=== PATIENT | male | born 1990 | race Caucasian/White ===

== ENCOUNTER → 2016-12-24 | Outpatient (CLI) | payer OTHER, SELFPAY ==
[2016-12-24 14:27] LABS: ALBUMIN 3.9 GM/DL (3.2-5.2); ALBUMIN/GLOBULIN RATIO 1.15 (1.00-1.93); ALKALINE PHOSPHATASE 43 U/L (45-117); ALT/SGPT 17 U/L (12-78); ANION GAP 7 MEQ/L (8-16); AST/SGOT 15 U/L (15-37); BILIRUBIN,TOTAL 0.3 MG/DL (0.2-1.0); BLOOD UREA NITROGEN 7 MG/DL (7-18); CALCIUM LEVEL 8.9 MG/DL (8.5-10.1); CARBON DIOXIDE LEVEL 29 MEQ/L (21-32); CHLORIDE LEVEL 107 MEQ/L (98-107); CREATININE FOR GFR 0.91 MG/DL (0.70-1.30); GLOMERULAR FILTRATION RATE > 60.0 (>60); GLUCOSE, FASTING 95 MG/DL (70-105); POTASSIUM SERUM 4.1 MEQ/L (3.5-5.1); SODIUM LEVEL 143 MEQ/L (136-145); TOTAL PROTEIN 7.3 GM/DL (6.4-8.2)
[2016-12-24 14:37] LABS: BASO % 0.5 % (0.0-1.0); EOS # 0.1 K/mm3 (0.0-0.50); EOS % 0.9 % (0.0-3.0); LARGE UNSTAINED CELL # 0.1 K/mm3 (0.0-0.4); LARGE UNSTAINED CELL % 1.8 % (0.0-4.0); LYMPH # 1.7 K/mm3 (1.5-6.5); MEAN CORPUSCULAR HEMOGLOBIN 30.3 pg (27.0-33.0); MEAN CORPUSCULAR HGB CONC 35.5 g/dl (32.0-36.5); MEAN CORPUSCULAR VOLUME 85.3 fl (80.0-96.0); MONO # 0.4 K/mm3 (0.0-0.8); MONO % 5.3 % (0.0-5.0); NEUTROPHILS # 4.6 K/mm3 (1.8-7.7); NEUTROPHILS % 68.5 % (36.0-66.0); PLATELET COUNT, AUTOMATED 223 k/mm3 (150-450); RED CELL DISTRIBUTION WIDTH 12.7 % (11.5-14.5); WHITE BLOOD COUNT 6.7 K/mm3 (4.0-10.0)
[2016-12-25 14:13] LABS: HIV SCRN NEGATIVE (NEGATIVE); HIV SCRN1 NEGATIVE (NEGATIVE)
[2016-12-25 14:14] LABS: CONTROL LINE INT CTR LINE PRESENT
== END ==
LOC: M LAB 12:54
PROVIDERS: ATTEND Family Medicine
DX: F11.20 Opioid dependence, uncomplicated (principal)

== ENCOUNTER → 2017-10-17 | Outpatient (CLI) | payer OTHER ==
[2017-10-17 08:41] LABS: BASO % 0.4 % (0.0-1.0); EOS # 0.1 10^3/uL (0.0-0.50); EOS % 0.7 % (0.0-3.0); HEMATOCRIT 41.6 % (42.0-52.0); HEMOGLOBIN 14.2 g/dl (14.0-18.0); IMMATURE GRANULOCYTE % 0.3 % (0-0); LYMPH % 28.3 % (24.0-44.0); MEAN CORPUSCULAR HEMOGLOBIN 28.9 pg (27.0-33.0); MEAN CORPUSCULAR HGB CONC 34.1 g/dl (32.0-36.5); MEAN CORPUSCULAR VOLUME 84.6 fl (80.0-96.0); MONO % 13.6 % (0.0-5.0); NEUTROPHILS % 56.7 % (36.0-66.0); PLATELET COUNT, AUTOMATED 255 10^3/uL (150-450); RED BLOOD COUNT 4.92 10^6/uL (4.30-6.10); RED CELL DISTRIBUTION WIDTH 11.9 % (11.5-14.5); WHITE BLOOD COUNT 7.1 10^3/uL (4.0-10.0)
[2017-10-17 08:51] LABS: APPEARANCE, URINE CLEAR (CLEAR); BACTERIA, URINE AUTO NEGATIVE (NEGATIVE); BILIRUBIN, URINE AUTO NEGATIVE (NEGATIVE); BLOOD, URINE BLOOD NEGATIVE (NEGATIVE); COLOR, URINE YELLOW (YELLOW); GLUCOSE, URINE (UA) AUTO NEGATIVE (NEGATIVE); KETONE, URINE AUTO NEGATIVE (NEGATIVE); LEUKOCYTE ESTERASE, URINE AUTO NEGATIVE (NEGATIVE); MUCUS, URINE SMALL (NEGATIVE); NITRITE, URINE AUTO NEGATIVE (NEGATIVE); PROTEIN, URINE AUTO NEGATIVE (NEGATIVE); RBC, URINE AUTO 1 /HPF (0-3); SPECIFIC GRAVITY URINE AUTO 1.025 (1.002-1.035); SQUAMOUS EPITHELIAL CELL UR AU 0 /HPF (0-6); UROBILINOGEN, URINE AUTO 0.2 mg/dL (0.0-2.0); WBC, URINE AUTO 0 /HPF (0-3)
[2017-10-17 09:16] LABS: ALBUMIN 4.1 GM/DL (3.2-5.2); ALBUMIN/GLOBULIN RATIO 1.21 (1.00-1.93); ALKALINE PHOSPHATASE 53 U/L (45-117); ALT/SGPT 22 U/L (12-78); ANION GAP 7 MEQ/L (8-16); AST/SGOT 26 U/L (7-37); BILIRUBIN,TOTAL 0.4 MG/DL (0.2-1.0); BLOOD UREA NITROGEN 21 MG/DL (7-18); CALCIUM LEVEL 8.5 MG/DL (8.5-10.1); CARBON DIOXIDE LEVEL 29 MEQ/L (21-32); CHLORIDE LEVEL 104 MEQ/L (98-107); CREATININE FOR GFR 1.03 MG/DL (0.70-1.30); GLOMERULAR FILTRATION RATE > 60.0 (>60); GLUCOSE, FASTING 102 MG/DL (70-105); SODIUM LEVEL 140 MEQ/L (136-145); TOTAL PROTEIN 7.5 GM/DL (6.4-8.2)
[2017-10-18 10:10] LABS: HEPATITIS B SURFACE ANTIGEN NEGATIVE (NEGATIVE)
[2017-10-18 10:37] LABS: HEPATITIS B CORE ANTIBODY IGM NEGATIVE (NEGATIVE)
[2017-10-18 10:39] LABS: HEPATITIS A ANTIBODY IGM NEGATIVE (NEGATIVE)
[2017-10-18 10:55] LABS: HEPATITIS C VIRUS ABY INDEX > 11.0 INDEX (<0.8)
[2017-10-21 00:06] LABS: HCV RNA NAA QUALITATIVE Negative (Negative)
== END ==
LOC: M LAB 08:16
DX: F11.21 Opioid dependence, in remission (principal)
CPT/HCPCS: 80053

== ENCOUNTER → 2017-11-20 | Outpatient (CLI) | payer OTHER ==
[2017-11-20 13:32] LABS: HEMATOCRIT 39.6 % (42.0-52.0); HEMOGLOBIN 13.4 g/dl (14.0-18.0); MEAN CORPUSCULAR HEMOGLOBIN 28.3 pg (27.0-33.0); MEAN CORPUSCULAR HGB CONC 33.8 g/dl (32.0-36.5); MEAN CORPUSCULAR VOLUME 83.7 fl (80.0-96.0); PLATELET COUNT, AUTOMATED 252 10^3/uL (150-450); RED BLOOD COUNT 4.73 10^6/uL (4.30-6.10); WHITE BLOOD COUNT 5.2 10^3/uL (4.0-10.0)
[2017-11-20 13:52] LABS: ALBUMIN/GLOBULIN RATIO 1.25 (1.00-1.93); ALKALINE PHOSPHATASE 57 U/L (45-117); ALT/SGPT 28 U/L (12-78); ANION GAP 8 MEQ/L (8-16); AST/SGOT 30 U/L (7-37); BILIRUBIN,TOTAL 0.3 MG/DL (0.2-1.0); BLOOD UREA NITROGEN 13 MG/DL (7-18); CALCIUM LEVEL 8.7 MG/DL (8.5-10.1); CARBON DIOXIDE LEVEL 30 MEQ/L (21-32); CHLORIDE LEVEL 103 MEQ/L (98-107); CREATININE FOR GFR 0.85 MG/DL (0.70-1.30); GLOMERULAR FILTRATION RATE > 60.0 (>60); GLUCOSE, FASTING 104 MG/DL (70-100); POTASSIUM SERUM 4.1 MEQ/L (3.5-5.1); SODIUM LEVEL 141 MEQ/L (136-145); TOTAL PROTEIN 7.2 GM/DL (6.4-8.2)
[2017-11-20 14:08] LABS: HEPATITIS B SURFACE ANTIGEN NEGATIVE (NEGATIVE)
[2017-11-20 14:37] LABS: HIV 1&2 SCREEN CENTAUR NEGATIVE (NEGATIVE)
[2017-11-20 14:40] LABS: HEPATITIS C VIRUS ABY INDEX > 11.0 INDEX (<0.8)
[2017-11-20 16:06] LABS: CHLAMYDIA DNA AMPLIFICATION NEGATIVE (NEGATIVE); GC DNA AMPLIFICATION NEGATIVE (NEGATIVE)
== END ==
LOC: M LAB 12:08
DX: F11.20 Opioid dependence, uncomplicated (principal)
CPT/HCPCS: 93005

== ENCOUNTER 2018-03-21 22:59 | Emergency (ER) | payer OTHER | END 2018-03-22 | disposition home or self-care (01) | LOC: M ED 03-22 | DX: F19.120 Other psychoactive substance abuse with intoxication, uncomplicated (principal); F41.8 Other specified anxiety disorders; Z88.0 Allergy status to penicillin; Z79.899 Other long term (current) drug therapy | CPT/HCPCS: 99284 ==

== ENCOUNTER 2018-04-02 09:11 | Emergency (ER) | payer OTHER | END 2018-04-02 10:30 | disposition home or self-care (01) | LOC: M ED 09:11 | DX: Z48.02 Encounter for removal of sutures (principal); F17.200 Nicotine dependence, unspecified, uncomplicated | CPT/HCPCS: 99282 ==

== ENCOUNTER 2018-05-21 02:44 | Emergency (ER) | payer OTHER ==
[2018-05-21] MEDS ORDERED: KETOROLAC 30 MG/ML VIAL (J1885) As Ordered (03:30)
[2018-05-21] MEDS: KETOROLAC 60 MG/2 ML VIAL (J1885) IM (03:30)
== END 2018-05-21 03:39 | disposition home or self-care (01) ==
LOC: M ED 02:44
DX: S02.5XXA Fracture of tooth (traumatic), initial encounter for closed fracture (principal); Y04.8XXA Assault by other bodily force, initial encounter; Y92.89 Other specified places as the place of occurrence of the external cause; Z79.899 Other long term (current) drug therapy; Z79.891 Long term (current) use of opiate analgesic; Z88.0 Allergy status to penicillin; F17.220 Nicotine dependence, chewing tobacco, uncomplicated
CPT/HCPCS: J1885

== ENCOUNTER 2019-05-28 08:16 | Inpatient (IN) | payer MEDICAID, OTHER ==
[~2019-05-28] VITALS: Ht 177.8 cm; Wt 77.0 kg
[~2019-05-28 08:16] MED LIST: BUSP10TA PO; METH40TA PO; REME30TA PO
[2019-05-28] MEDS ORDERED: NICOTINE 21MG/24HR 1 EA TRANSDERMAL TD ONE (08:30)
[2019-05-28 09:17] LABS: HEMATOCRIT 41.6 % (42.0-52.0); MEAN CORPUSCULAR HEMOGLOBIN 29.4 pg (27.0-33.0); MEAN CORPUSCULAR HGB CONC 36.1 g/dl (32.0-36.5); MEAN CORPUSCULAR VOLUME 81.6 fl (80.0-96.0); PLATELET COUNT, AUTOMATED 253 10^3/uL (150-450); WHITE BLOOD COUNT 10.9 10^3/uL (4.0-10.0)
[2019-05-28] MEDS ORDERED: ACET1TAB55 PO (09:20)
[2019-05-28] MEDS ORDERED: RA M10TA PO (09:20)
[2019-05-28 09:54] LABS: BLOOD UREA NITROGEN 15 MG/DL (7-18); CARBON DIOXIDE LEVEL 27 MEQ/L (21-32); CHLORIDE LEVEL 102 MEQ/L (98-107); CREATININE FOR GFR 1.19 MG/DL (0.70-1.30); GLOMERULAR FILTRATION RATE > 60.0 (>60); GLUCOSE, FASTING 102 MG/DL (70-100); POTASSIUM SERUM 3.7 MEQ/L (3.5-5.1); SODIUM LEVEL 138 MEQ/L (136-145)
[2019-05-28 09:55] LABS: ACETAMINOPHEN LEVEL < 2.0 UG/ML (10.0-30.0); ALBUMIN 4.3 GM/DL (3.2-5.2); ALT/SGPT 26 U/L (12-78); BILIRUBIN,DIRECT 0.1 MG/DL (0.0-0.2); BILIRUBIN,TOTAL 0.5 MG/DL (0.2-1.0); CALCIUM LEVEL 9.4 MG/DL (8.5-10.1); ETHYL ALCOHOL (ETHANOL) < 0.003 % (0.000-0.010); SALICYLATE LEVEL 3.2 MG/DL (5.0-30.0); TOTAL PROTEIN 8.4 GM/DL (6.4-8.2)
[2019-05-28 10:05] LABS: AMPHETAMINES LEVEL URINE NEGATIVE (NEGATIVE); BARBITURATES URINE NEGATIVE (NEGATIVE); BENZODIAZEPINES URINE NEGATIVE (NEGATIVE); CANNABINOIDS URINE POSITIVE (NEGATIVE); COCAINE METABOLITE URINE NEGATIVE (NEGATIVE); METHADONE URINE POSITIVE (NEGATIVE); OPIATES URINE NEGATIVE (NEGATIVE); PHENCYCLIDINE URINE NEGATIVE (NEGATIVE)
[2019-05-28] MEDS ORDERED: MAALOX 30 ML SUSP *UDC PO PRN (13:00)
[2019-05-28] MEDS ORDERED: LORazepam 1 MG TAB PO PRN (13:00)
[2019-05-28] MEDS ORDERED: MOM 30ML SUSPENSION UDC PO PRN (13:00)
[2019-05-28] MEDS ORDERED: HALOPERIDOL 5 MG TAB PO PRN (13:00)
[2019-05-28] MEDS ORDERED: ACETAMINOPHEN TAB 650MG DOSE (2X325MG) PO PRN (13:00)
[2019-05-28] MEDS ORDERED: traZODone 50 MG TAB PO PRN (13:00)
[2019-05-28 15:09] VITALS: BP 122/67
[2019-05-28] MEDS: NICOTINE 21MG/24HR 1 EA TRANSDERMAL TD SCH (21:59)
[2019-05-29 06:14] VITALS: BP 126/68
[2019-05-29] MEDS: NICOTINE 21MG/24HR 1 EA TRANSDERMAL TD SCH ×2 (08:44→16:06)
--- NOTE | 2019-05-29 10:34 | HPEPDOC ---
General Date of Admission May 28, 2019 at 12:51 Date of Service: May 29, 2019 Attending Physician: TOMÁS PEÑALOZA MD Chief Complaint The patient is a 29-year-old male admitted with a reason for visit of Unspecified Depression. History of Present Illness Patient is a 29-year-old male, past medical history significant for polysubstance abuse, hepatitis C, nicotine dependence, admitted to inpatient psychiatric unit on account of suicidal ideation. On assessment, patient complains of generalized malaise with body aches, but denies any specific concern. Feels it might be due to not having Suboxone for some days now. Denies chest pain, reports intermittent periods of shortness of breath, denies history of asthma or respiratory problems. Home Medications Scheduled Melatonin (Melatonin) 10 Mg Tablet, 10 MG PO QHS, (Reported) Scheduled PRN Acetaminophen (Acetaminophen) 325 Mg Tablet, 650 MG PO Q6H PRN for PAIN, (Reported) Allergies Coded Allergies: Penicillins (Verified Allergy, Unknown, 05/28/19) Past Medical History Medical History Hepatitis C Nicotine dependence Polysubstance abuse Surgical History Denies surgical history Family History Father is unknown. Mother: No medical issues Social History Smokes one pack per day, denies alcohol, urine toxicology positive for methamphetamines and marijuana A-FIB/CHADSVASC A-FIB History Current/History of A-Fib/PAF?: No Current PO Anticoag Therapy: No Review of Systems Other systems A pertinent 10 point review of systems was completed, negative except as stated in the history of presenting illness Physical Examination Other physical findings GENERAL: NAD SKIN : Warm, dry intact HEENT: Atraumatic, normocephalic, PERRL, moist mucous membrane CARDIOVASCULAR: Regular rate and rhythm, S1S2, no JVD, no edema, distal pulses + palpable RESP: inspiratory wheezes, no accessory muscle use noted ABDOMEN: BS+ non distended non tender MS: no joint deformities NEURO: Alert and oriented x 3, CN2-12 grossly intact PSYCH: no anxiety or agitation, depressed affect. Vital Signs Vital Signs Date Time Temp Pulse Resp B/P (MAP) Pulse Ox O2 Delivery O2 Flow Rate FiO2 05/29/19 06:14 98.7 75 18 126/68 (87) 05/28/19 13:44 100 05/28/19 08:40 Room Air Assessment/Plan Dyspnea -Occurring intermittently -In a patient with underlying nicotine dependence -Albuterol as needed for periods of shortness of breath Hepatitis C -Followed by infectious disease specialist -No acute complaints at this time Polysubstance abuse -Urine toxicology positive for methamphetamines and marijuana Plan / VTE VTE Prophylaxis Ordered?: No VTE Exclusion Mechanical Proph: Low Risk for VTE FAISAL DÍAZP May 29, 2019 10:34
[2019-05-29] MEDS ORDERED: hydrOXYzine 50 MG TAB PO PRN (10:45)
[2019-05-29] MEDS ORDERED: ALBUTEROL 90 MCG/ACT 8GM HFA INHALER INH PRN (10:45)
[2019-05-29] MEDS: buPROPion (WELLBUTRIN SR) 100 MG SR TAB PO SCH (11:17)
[2019-05-29 18:16] VITALS: BP 124/61
[2019-05-29] MEDS ORDERED: QUEtiapine FUMARATE 50 MG TAB PO SCH (21:00)
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
[2019-05-30 06:50] VITALS: BP 103/56
[2019-05-30] MEDS: NICOTINE 21MG/24HR 1 EA TRANSDERMAL TD SCH (09:27)
[2019-05-30] MEDS: buPROPion (WELLBUTRIN SR) 100 MG SR TAB PO SCH (09:27)
[2019-05-30 18:05] VITALS: BP 121/77
[2019-05-30] MEDS: QUEtiapine FUMARATE 50 MG TAB PO SCH (21:52)
[2019-05-31 06:46] VITALS: BP 104/55
[2019-05-31] MEDS: buPROPion **SR TABLET** (ZYBAN) 150MG PO SCH (09:17)
[2019-05-31] MEDS: NICOTINE 21MG/24HR 1 EA TRANSDERMAL TD SCH (09:18)
--- NOTE | 2019-05-31 10:55 | MHIPN ---
DATE: 05/30/2019 VITAL SIGNS: Temperature 98.4, pulse 75, respirations 18, blood pressure 103/56. CURRENT MEDICATIONS: - Seroquel 50 mg at bedtime - Wellbutrin SR 100 mg every a.m. HISTORY OF PRESENT ILLNESS: This is a 29-year-old white male who continues to struggle with depressive symptoms. He feels helpless and hopeless and feels guilty and ashamed for past behaviors. He is still withdrawing from the Suboxone and methadone that he has abused off the street. He is interested in a dual diagnosis program. He is tolerating his medications well. His appetite is somewhat improved. He slept somewhat better last night. No side effects on the Seroquel. He feels comfortable increasing the doses. He thinks he was up to Wellbutrin 300 mg per day in the past. He is still worried about his future. The patient has few social supports, except for his girlfriend who will be visiting later today. MENTAL STATUS EXAMINATION: The patient is alert, oriented and cooperative. Affect remains sad. Mood is still moderately depressed. The patient is still reporting auditory hallucinations, mostly mumbling in nature. No signs of paranoia or thought disorder. Insight and judgment remain poor. Grooming and hygiene are marginal. DIAGNOSES: Depressive disorder unspecified. Rule out major depression with psychosis. Post traumatic stress disorder. Polysubstance use disorder. PLAN: Increase Wellbutrin SR to 150 mg every a.m. Increase Seroquel to 100 mg at bedtime. Continue involvement in hospital milieu. Staff to work on discharge planning with outpatient referrals.
[2019-05-31 18:49] VITALS: BP 129/60
[2019-05-31] MEDS: QUEtiapine FUMARATE 50 MG TAB PO SCH (21:51)
[2019-06-01 06:48] VITALS: BP 99/50
[2019-06-01] MEDS: buPROPion **SR TABLET** (ZYBAN) 150MG PO SCH (08:06)
[2019-06-01] MEDS: NICOTINE 21MG/24HR 1 EA TRANSDERMAL TD SCH (08:07)
[2019-06-01 11:19] VITALS: BP 99/50
[2019-06-01 16:00] VITALS: BP 138/79
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
[2019-06-01] MEDS: QUEtiapine FUMARATE 200 MG TAB PO SCH (21:50)
--- NOTE | 2019-06-01 21:54 | MHIPN ---
DATE: 06/01/2019 Temperature 98.7, pulse 66, respirations 12, blood pressure 99/50. CURRENT MEDICATIONS: - Seroquel 150 mg nightly - Wellbutrin SR 150 mg every morning HISTORY OF PRESENT ILLNESS: The patient states that he is still depressed, moderately to severely, mornings are always worse for him, he brightens somewhat later in the day. He had trouble sleeping last night, he had a 2 hour sleep latency, he was up frequently at night. He now reports likely social phobic symptoms. His girlfriend visited yesterday and his hands and palms were sweaty. He has a history of trouble with public speaking. He avoids crowded situations. This dates back to age 15. No recent posttraumatic stress disorder (PTSD) symptoms. His girlfriend was supportive during her visit yesterday. Patient may have some legal charges pending but he refuses to investigate it. The patient is still reporting some psychotic symptoms. He is tolerating the medication well. Patient states that as a teenager he was on Prozac but felt suicidal on it. He was on Paxil briefly and tolerated it well. MENTAL STATUS EXAMINATION: Patient is alert, oriented, cooperative. Affect still remains sad. He is highly anxious. Patient's mood is moderately to severely depressed. No change in auditory hallucinations. No signs of paranoia or thought disorder. Insight and judgment remain poor. No active suicidal ideation. Grooming and hygiene remain marginal. DIAGNOSES: 1. Major depression with psychotic features. 2. Posttraumatic stress disorder (PTSD). 3. Panic anxiety disorder. 4. Social anxiety disorder. 5. Polysubstance use disorder. PLAN: Increase Wellbutrin SR to 200 mg every morning. Increase Seroquel to 200 mg nightly.
[2019-06-02 06:51] VITALS: BP 104/60
[2019-06-02] MEDS: buPROPion (WELLBUTRIN SR) 100 MG SR TAB PO SCH (08:41)
[2019-06-02] MEDS: NICOTINE 21MG/24HR 1 EA TRANSDERMAL TD SCH (08:42)
[2019-06-02] MEDS: PARoxetine 10MG TABLET PO SCH (11:54)
[2019-06-02 16:43] VITALS: BP 128/58
--- NOTE | 2019-06-02 20:21 | MHIPN ---
DATE: 06/02/2019 VITAL SIGNS: Temperature 98.6, pulse 74, respirations 16, blood pressure 104/60. CURRENT MEDICATIONS: - Wellbutrin SR 200 mg every morning - Seroquel 200 mg at bedtime HISTORY OF PRESENT ILLNESS: Patient states his mood is somewhat improved. He feels more hopeful about the future. His girlfriend has secure housing established, so he has a place to go to. They are planning on getting . He realizes that he will have to go back to [facility] at some point, but he is accepting. He still complains of severe anxiety. This appears to be due to social phobic symptoms. We discussed a trial of Paxil. He claims he did well on Paxil in the past as an adolescent. MENTAL STATUS EXAMINATION: Patient is alert, oriented, and cooperative. Affect is brighter. The patient is still quite anxious. Mood is only mildly depressed today. Auditory hallucinations are minimal. No signs of paranoia or thought disorder. Insight and judgment seem much improved. No signs of dangerousness. Grooming and hygiene somewhat improved. DIAGNOSES: 1. Major depression with psychotic features. 2. Posttraumatic stress disorder. 3. Panic/anxiety disorder. 4. Social anxiety disorder. 5. Polysubstance use disorder. PLAN: Add Paxil 10 mg daily. Staff to work on discharge planning.
[2019-06-02] MEDS: QUEtiapine FUMARATE 200 MG TAB PO SCH (22:00)
[2019-06-03 06:53] VITALS: BP 135/62
[2019-06-03] MEDS: buPROPion (WELLBUTRIN SR) 100 MG SR TAB PO SCH (08:09)
[2019-06-03] MEDS: PARoxetine 10MG TABLET PO SCH (08:09)
[2019-06-03] MEDS: NICOTINE 21MG/24HR 1 EA TRANSDERMAL TD SCH (08:10)
[2019-06-03] MEDS ORDERED: BUPR10TASR PO (09:47)
[2019-06-03] MEDS ORDERED: QUET200T2 PO (09:47)
[2019-06-03] MEDS ORDERED: PARO20TA4 PO (09:47)
[2019-06-03] MEDS ORDERED: WELL200T PO (09:50)
[2019-06-04] MEDS ORDERED: PARoxetine 20 MG TAB PO SCH (09:00)
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
== END 2019-06-03 12:15 | disposition home or self-care (01) | DRG 751 ==
LOC: M ED 08:16 → M ED INP 12:51 → M PSY 15:01
PROVIDERS: ADMIT Psychiatry & Neurology Psychiatry; ATTEND Psychiatry & Neurology Psychiatry
DX: F32.3 Major depressive disorder, single episode, severe with psychotic features (principal); B18.2 Chronic viral hepatitis C; F43.10 Post-traumatic stress disorder, unspecified; F41.0 Panic disorder [episodic paroxysmal anxiety]; F17.200 Nicotine dependence, unspecified, uncomplicated; Z88.0 Allergy status to penicillin; F12.90 Cannabis use, unspecified, uncomplicated; F15.90 Other stimulant use, unspecified, uncomplicated; Z65.3 Problems related to other legal circumstances

== ENCOUNTER → 2020-08-02 | Outpatient (REF) | payer OTHER ==
[~2020-08-02] MED LIST changes: +ACET1TAB55 PO; +BUPR10TASR PO; +PARO20TA4 PO; +QUET200T2 PO; +RA M10TA PO; +WELL200T PO
== END ==
LOC: M LAB REF 15:28
PROVIDERS: ATTEND Surgery
DX: U07.1 COVID-19 (principal)

== ENCOUNTER → 2021-08-29 | Outpatient (CLI) | payer MEDICAID ==
[~2021-08-29] MED LIST changes: +MIRT-60 PO; -REME30TA PO
== END ==
LOC: M OUTALCOH 08:29
PROVIDERS: ATTEND Psychiatry & Neurology Psychiatry
DX: F11.20 Opioid dependence, uncomplicated (principal)

== ENCOUNTER 2021-09-05 15:00 | Outpatient (RCR) | payer MEDICAID | END 2021-09-12 | LOC: M OUTALCOH 15:00 | PROVIDERS: ATTEND Psychiatry & Neurology Psychiatry | DX: F11.20 Opioid dependence, uncomplicated (principal); Z72.0 Tobacco use ==

== ENCOUNTER 2021-10-12 09:00 | Outpatient (RCR) | payer MEDICAID | END 2021-10-13 | LOC: M OUTALCOH 09:00 | PROVIDERS: ATTEND Psychiatry & Neurology Psychiatry | DX: F11.20 Opioid dependence, uncomplicated (principal); Z72.0 Tobacco use ==

== ENCOUNTER 2021-11-02 09:00 | Outpatient (RCR) | payer MEDICAID | END 2021-11-13 | LOC: M OUTALCOH 09:00 | PROVIDERS: ATTEND Psychiatry & Neurology Psychiatry | DX: F11.20 Opioid dependence, uncomplicated (principal); Z72.0 Tobacco use ==

== ENCOUNTER 2021-12-04 14:03 | Outpatient (RCR) | payer MEDICAID | END 2021-12-11 | LOC: M OUTALCOH 14:03 | PROVIDERS: ATTEND Psychiatry & Neurology Psychiatry | DX: F11.20 Opioid dependence, uncomplicated (principal); Z72.0 Tobacco use ==

== ENCOUNTER 2021-12-07 09:00 | Outpatient (RCR) | payer MEDICAID | END 2021-12-11 | LOC: M OUTALCOH 09:00 | PROVIDERS: ATTEND Psychiatry & Neurology Psychiatry | DX: F11.20 Opioid dependence, uncomplicated (principal); Z72.0 Tobacco use ==

== ENCOUNTER 2022-01-03 11:00 | Outpatient (RCR) | payer MEDICAID | END 2022-01-11 | LOC: M OUTALCOH 11:00 | PROVIDERS: ATTEND Psychiatry & Neurology Psychiatry | DX: F11.20 Opioid dependence, uncomplicated (principal); Z72.0 Tobacco use ==

== ENCOUNTER 2022-02-08 13:00 | Outpatient (RCR) | payer MEDICAID ==
[~2022-02-08 13:00] MED LIST changes: +BACT800T5 PO; +SUBO8MIS
== END 2022-02-10 ==
LOC: M OUTALCOH 13:00
PROVIDERS: ATTEND Psychiatry & Neurology Psychiatry
DX: F11.20 Opioid dependence, uncomplicated (principal); Z72.0 Tobacco use

== ENCOUNTER 2022-02-15 14:15 | Outpatient (RCR) | payer OTHER | END 2022-03-13 | LOC: M OUTALCOH 14:15 | PROVIDERS: ATTEND Psychiatry & Neurology Psychiatry | DX: F11.20 Opioid dependence, uncomplicated (principal); Z72.0 Tobacco use ==

== ENCOUNTER 2022-08-27 05:28 | Emergency (ER) | payer OTHER ==
[~2022-08-27] VITALS: Ht 177.8 cm; Wt 72.7 kg
[2022-08-27 05:38] VITALS: BP 175/103
== END 2022-08-27 07:00 | disposition left against medical advice (07) ==
LOC: EDBD 05:28 → M ED 05:28
DX: Z53.21 Procedure and treatment not carried out due to patient leaving prior to being seen by health care provider (principal)